=== PATIENT | female | born 1935 | race Caucasian/White ===

== ENCOUNTER 2019-07-09 09:47 | Emergency (ER) | payer MEDICARE ==
[~2019-07-09] VITALS: Ht 165.1 cm; Wt 155.0 kg
[~2019-07-09 09:47] MED LIST: ACET650S21 PO; AMLO-150 PO; ASPI-515 PO; CALCIUM PO; CYAN-27 PO; DEXL60CA2 PO; DICL75TA3 PO; ESCI10TA PO; ESCI20TA PO; FERR324T5 PO; LEVO25TA2 PO; LOSA50TA14 PO; MULT-658 PO; NITR50CA PO; OMEG1CAP23 PO; OXYB5TAB10 PO; PANT40TA3 PO; RIVA20TA PO; ROSU20TA2 PO; TRAZ-137 PO
[2019-07-09] MEDS ORDERED: CEFTRIAXONE PMX 1GM/50ML 50 ML IV ONE (10:00)
[2019-07-09] MEDS ORDERED: SODIUM CHLORIDE FLUSH 10ML SYR IVF ONE (10:00)
[2019-07-09] MEDS ORDERED: CEFTRIAXONE 250 MG IM ONE (10:00)
[2019-07-09] MEDS ORDERED: CEFTRIAXONE PMX 1GM/50ML 50 ML ONE (10:07)
[2019-07-09 10:17] LABS: BASOPHILS # (AUTO) 0.01 x10^3/uL (0-0.1); BASOPHILS % (AUTO) 0 % (0-1); EOSINOPHILS # (AUTO) 0.06 x10^3/uL (0-0.4); EOSINOPHILS % (AUTO) 1 % (1-7); LYMPHOCYTES # (AUTO) 2.21 x10^3/uL (1-3.4); LYMPHOCYTES % (AUTO) 46 % (22-44); MD NO; MEAN CORPUSCULAR HEMOGLOBIN 32.2 pg (27.0-34.8); MEAN CORPUSCULAR HGB CONC 32.9 g/dL (32.4-35.8); MEAN CORPUSCULAR VOLUME 97.9 fL (80-100); MEAN PLATELET VOLUME 8.5 fL (7.4-10.4); MONOCYTES % (AUTO) 8 % (2-9); NEUTROPHILS # (AUTO) 2.08 x10^3/uL (1.8-6.8); NEUTROPHILS % (AUTO) 44 % (42-75); PLATELET COUNT 202 x10^3/uL (130-400); RED BLOOD COUNT 4.04 x10^6/uL (3.82-5.3); RED CELL DISTRIBUTION WIDTH 12.5 % (9.6-15.2)
[2019-07-09 10:24] LABS: ALBUMIN 2.7 g/dL (3.4-5.0); ANION GAP 5 mmol/L (5-15); CALCIUM 9.7 mg/dL (8.5-10.1); CHLORIDE 110 mmol/L (98-107); CREATININE 1.07 mg/dL (0.55-1.02)
[2019-07-09 10:26] LABS: MICROSCOPIC INDICATED
[2019-07-09 10:30] LABS: CULTURE INDICATED? YES
[2019-07-09] MEDS ORDERED: SODIUM CHLORIDE 0.9%, 500ML IVBOLUS ONE (10:30)
[2019-07-09 12:05] VITALS: BP 153/62
== END 2019-07-09 12:35 | disposition home or self-care (01) ==
LOC: ED 10:58
DX: N39.0 Urinary tract infection, site not specified (principal)
CPT/HCPCS: 36415; 80048; 81001; 82040; 85025; 87077; 87086; 87186; 96365; 96366; 99283; J0696; J7040